=== PATIENT | male | born 1955 | race Caucasian/White ===

== ENCOUNTER → 2019-10-28 | Outpatient (CLI) | payer OTHER ==
[~2019-10-28] MED LIST: AMOX875 PO; BUSP15 PO; CLON.5 PO; CLON1 PO; CYCL10 PO; HYDACE5 PO; MEDICAL MARIJUANA; MIRT15 PO; MIRT15ST; MIRT30 PO; NEOPOLHCSU OT
[2019-10-31 11:45] LABS: U Amphetamine Screen Not Detected; U Barbituate Screen Not Detected; U Benzodiazapine Screen Not Detected; U Buprenorphine Screen Not Detected; U Cannabinoids Screen DETECTED; U Cocaine Screen Not Detected; U Methadone Screen Not Detected; U Methamphetamine Screen Not Detected; U Opiates Screen Not Detected; U Oxycodone Screen Not Detected; U Propoxyphene Screen Not Detected
== END | disposition home or self-care (01) ==
LOC: LAB 15:46 → LAB SHORT 17:14 → EDSTATUS 10-31 15:42
PROVIDERS: Psychiatry & Neurology Psychiatry
DX: Z51.81 Encounter for therapeutic drug level monitoring (principal); Z79.899 Other long term (current) drug therapy

== ENCOUNTER 2020-03-18 11:27 | Emergency (ER) | payer OTHER ==
[~2020-03-18] VITALS: Ht 172.7 cm; Wt 61.2 kg
[2020-03-18] MEDS ORDERED: CYCL10 PO (12:03)
[2020-03-18] MEDS ORDERED: Voltaren100 GM TOP (12:03)
[2020-03-18] MEDS ORDERED: PRED20 PO (12:03)
== END 2020-03-18 12:17 | disposition home or self-care (01) ==
LOC: ER 11:27
DX: M25.552 Pain in left hip (principal); Z88.8 Allergy status to other drugs, medicaments and biological substances; Z79.899 Other long term (current) drug therapy; F32.9 Major depressive disorder, single episode, unspecified; F43.10 Post-traumatic stress disorder, unspecified; M54.5 Low back pain; G89.29 Other chronic pain
CPT/HCPCS: 99283

== ENCOUNTER 2021-01-23 07:03 | Emergency (ER) | payer OTHER ==
[~2021-01-23] VITALS: Ht 172.7 cm; Wt 64.9 kg
[~2021-01-23 07:03] MED LIST changes: +PRED20 PO; +Voltaren100 GM TOP
[2021-01-23] MEDS ORDERED: CLON.5 PO (07:29)
== END 2021-01-23 08:25 | disposition left against medical advice (07) ==
LOC: ER 07:03
DX: S61.320A Laceration with foreign body of right index finger with damage to nail, initial encounter (principal); Z88.8 Allergy status to other drugs, medicaments and biological substances; Z79.899 Other long term (current) drug therapy; W45.8XXA Other foreign body or object entering through skin, initial encounter
CPT/HCPCS: 73130; 99283-25

== ENCOUNTER 2021-01-24 10:15 | Day surgery (SDC) | payer OTHER ==
--- NOTE | 2021-01-24 12:48 | NUR ---
Ambulatory in [facility] warming gown applied. History, Chart, Medications and Allergies reviewed before start of procedure.Lungs clear T/O to Auscultation. Patient confirms NPO status and agrees with scheduled surgery. Pre-Op teaching done. Pt verbalizes understanding. Patient States Post-Procedure ride home has been arranged.
--- NOTE | 2021-01-24 15:14 | NUR ---
DR BROWN'S CONTACTED PT ASKING ABOUT PAIN MEDICATION RX NO RX ON CHART
== END 2021-01-24 23:11 | disposition home or self-care (01) ==
LOC: ORSCMMR 10:15
PROVIDERS: Orthopaedic Surgery
PROC: 0LQ70ZZ Repair Right Hand Tendon, Open Approach (ICD-10-PCS; principal; 2021-01-24 12:30)
DX: S66.320A Laceration of extensor muscle, fascia and tendon of right index finger at wrist and hand level, initial encounter (principal); F17.210 Nicotine dependence, cigarettes, uncomplicated
CPT/HCPCS: J0690; J1100; J1885; J2250; J2370; J2405; J2704; J3010; J7120

== ENCOUNTER → 2025-07-31 | Outpatient (CLI) | payer OTHER ==
[~2025-07-31] MED LIST changes: +ASPI81CH PO; +ATOR80 PO; +CLOP75 PO; +MIRALAX17 GM PO; +NYSTATIN100000 U10 MT
[2025-07-31 18:52] LABS: Hematocrit 43.4 % (37.0-53.0); Hemoglobin 15.0 g/dL (13.5-17.5); Mean Corpuscular HGB Conc 34.6 g/dL (31.5-36.5); Mean Corpuscular Volume 95 fL (80-100); NRBC ABSOLUTE 0.00 K/mm3 (0.00-0.02); NRBC Auto 0.0 /100 WBC (0.0-0.2); Platelet Count 260 K/mm3 (150-400); RDW Coefficient Variation 13.2 % (11.7-14.2); RDW Standard Deviation 45.8 fL (35.1-46.3)
[2025-07-31 19:52] LABS: Alanine Aminotransfer (ALT/SGP 16 U/L (12-78); Albumin, Blood 3.5 g/dL (3.4-5.0); Albumin/Globulin Ratio 1.1 (0.8-1.8); Anion Gap 3 mmol/L (3-11); Aspartate Aminotrans (AST/SGOT 23 U/L (12-37); Bilirubin, Total 0.6 mg/dL (0.1-1.0); Blood Urea Nitrogen 20 mg/dL (8-24); CHOL/HDL RATIO 2.1; CO2, Blood 28 mmol/L (21-32); Calcium, Blood 8.8 mg/dL (8.5-10.1); Chloride, Blood 109 mmol/L (98-108); Cholesterol 126 mg/dL (50-200); Creatinine, Blood 0.65 mg/dL (0.60-1.20); Globulin, Blood 3.1 g/dL (2.2-4.0); Glucose, Blood 124 mg/dL (70-99); HDL Cholesterol 60 mg/dL (>39); LDL/HDL RATIO 0.9; Low Density Lipoprotein Chol 57 mg/dL (0-110); Potassium, Blood 4.1 mmol/L (3.5-5.5); Sodium, Blood 136 mmol/L (136-145); Total Protein, Blood 6.6 g/dL (6.4-8.2); Triglycerides 47 mg/dL (30-160); Very Low Density Lipoprot Chol 9 mg/dL (6-32)
== END ==
LOC: LAB 10:49 → LAB SHORT 10:49
DX: I69.30 Unspecified sequelae of cerebral infarction (principal)
CPT/HCPCS: 80053; 80061; 85027